=== PATIENT | male | born 1965 | race Caucasian/White ===

== ENCOUNTER 2019-08-17 08:04 | Day surgery (SDC) | payer OTHER, SELFPAY ==
--- NOTE | 2019-08-16 19:27 | HP.PCM_ITS ---
History and Physical Date of Admission: 08/17/19 Leena Blackman 1965 ? ? CHIEF COMPLAINT: Scrotal pain ? HPI: The patient is a 54 year old male presents with left sided scrotal pain and was found to have a left inguinal hernia by urology. The patient states that he has noted symptoms for about 4-6 months. Denies burning with urination. Denies blood in urine. Notes twinges of sharp pain in the area. Denies constipation, denies straining with bowel movements or with urination. Notes slight swelling in the area. Denies previous hernias. ? ? PAST MEDICAL HISTORY ? Hypertension ? ? Non-seasonal allergic rhinitis 03/21/2019 ? PAST SURGICAL HISTORY ? APPENDECTOMY HX? done at 13 yrs old ? COLONOSCOP W/ OR W/O [facility] SPEC ? 04/12/2019 ? TONSILLECTOMY HX? done at 11 yrs old ? ? Current Outpatient Medications: candesartan (ATACAND) 32 mg tablet Take 1 tablet by mouth once daily. propranolol (INDERAL) 40 mg tablet Take one 60-90 minutes prior to public speaking ? ? ALLERGIES: Seasonal Allergies ? PERSONAL HISTORY: Social History Socioeconomic History Marital status: Tobacco Use Smoking status: Never Smoker ? FAMILY HISTORY Mother breast cancer 30 years ago Father?cancer lung and brain ? ? REVIEW OF SYSTEMS: General - denies fevers, denies anorexia, denies weight loss Cardiovascular - denies chest pain, denies history of [place] Pulmonary - denies shortness of breath, denies coughing up blood Gastrointestinal - denies abdominal pain, denies hematemesis, denies blood in stools Neurological - denies seizures, denies chronic numbness/weakness of extremities, denies chronic headaches Genitourinary - notes left testicular pain, denies burning with urination, denies blood in urine Hematological - denies spontaneous/prolonged bleeding Skin - denies nonhealing skin wounds Musculoskeletal - denies chronic joint/back pain Endocrine - denies diabetes, no thyroid problems Psychological ? denies hallucinations ? PHYSICAL EXAMINATION: General: The patient is 54 year old male, well nourished, well hydrated in no acute distress. The patient is oriented to time, place, and person. VITALS: Blood pressure 156/88, pulse 67, temperature 36.6 ?C (97.8 ?F), height 185.4 cm (6' 1), weight 90.8 kg (200 lb 3.2 oz), SpO2 94 %. Body mass index is 26.41 kg/m?. Head ? Normocephalic. EOM intact with sclera clear and no icterus noted. Mouth with mucus membranes moist. Neck - supple with no jugular venous distention noted. Trachea is midline. No masses noted. Lungs ? clear to auscultation. Normal breath sounds. No rales/rhonchi/wheezing noted. No labored breathing noted, such as retractions. No cough heard. Heart ? normal S1 and S2 auscultated. No rubs/clicks/murmurs noted. Regular rate. Abdomen ? soft and benign. Normal bowel soundss. No abdominal bruits noted. No distention noted. Extremities ? no calf tenderness noted. No pitting edema noted. Genitalia ? normal male phallus, testes in normal anatomical position and no masses noted, left inguinal hernia - reducible, no right inguinal hernias noted even with valsalva-like maneuvers Skin ? normal skin integrity. Neurological ? gait normal, no focal deficits noted Psych ? calm and appropriate ? ? IMPRESSION: left inguinal hernia ? PLAN: I have discussed the above with the patient. I have explained what a hernia is, in layman's terms. I have offered left inguinal hernia repair with mesh. I have explained the procedure to the patient. I have counseled the patient as to the risks of the procedure, including but not limited to: infection, bleeding, injury to any blood vessels/nerves, scar tissue, injury to the spermatic cord and/or testicle, injury to bowel/bladder, chronic groin pain, recurrence of hernia, wound infections, complications of anesthesia, etc. ? the patient understands. The patient wishes to proceed. ? I have answered all questions to the patient?s satisfaction and the patient has no further questions. . Diagnoses: (K40.90) Left inguinal hernia (primary encounter diagnosis) (N50.82) Scrotal pain Return to Clinic: The patient is instructed to follow-up with me after the procedure..
[2019-08-17] VITALS (10 sets, daily range): BP systolic 135–171; BP diastolic 74–106; PULSE 60–68; RESP 16–17; TEMP 36.1–36.6; O2SAT 94–100; BMI 26.4
--- NOTE | 2019-08-17 08:16 | EKG12_ITS ---
Test Reason : PREOP Blood Pressure : / mmHG Vent. Rate : 060 BPM Atrial Rate : 060 BPM P-R Int : 214 ms QRS Dur : 156 ms QT Int : 430 ms P-R-T Axes : 056 -06 -02 degrees QTc Int : 430 ms Sinus rhythm with 1st degree A-V block Right bundle branch block Abnormal ECG No previous ECGs available Confirmed by JED ORTEZ ([id number]), acquisition editor ALEX CURRY ([id number] on 08/21/2019 1:33:03 PM Referred By: Emy Cannon Confirmed By:JED ORTEZ
[2019-08-17] MEDS: Lactated Ringers 1,000 ML 75 ML IV (08:57)
[2019-08-17] MEDS: Cefazolin 2 GM in 0.9% Normal Saline 100 ML IV (09:44)
--- NOTE | 2019-08-17 09:45 | LIP_PTH ---
PATIENT: DACIA TRISTAN LOC: [facility] [place] U#:[id number] AGE/SX: 54/M ROOM: RE08/17/[address]: Dr. Emy Cannon MD : 1965 BED: DIS: 08/17/2019 SPEC #: [id number] RECD: 08/17/19 12:58 STATUS: JOSE DANIEL REhSante #: [id number] STEFANIE: 08/17/19 09:[address]: Emy Cannon DEPT: SURGICAL PATHOLOGY RECD BY: Joey Barnard ENTERED: 08/17/19 13:35 SP TYPE: LIPOMA OTHR DR: MD Anali Hunt MD Tissues: Inguinal region, NOS Procedures: Surgery Specimen Level III HEADER OPERATION: Inguinal hernia with mesh PRE-OP DIAGNOSIS: Right inguinal hernia TISSUE SUBMITTED: Right inguinal lipoma MICROSCOPIC DIAGNOSIS Right inguinal lipoma, biopsy: Mature adipose tissue consistent with lipoma. SJ:anam 08/20/19 MICROSCOPIC DESCRIPTION Slides are reviewed. GROSS DESCRIPTION Received in fixative is one container labeled with the patient's name and designated right inguinal lipoma. The specimen consists of an ovoid irregular piece of yellow adipose measuring 10 x 5 x 2 cm. Sections reveal yellow adipose cut surfaces without area of hemorrhage, necrosis or cystic degeneration. Crown Assembly Machine Operator sections are submitted in three cassettes. / SJ:anam 08/17/19 TC:1 CPT: 33079
--- NOTE | 2019-08-17 09:47 | PCM.DC.HER ---
Discharge Diet: No Restrictions Discharge Activity: Return to Normal Activity, May not drive while taking narcotic pain medications. Lifting Restrictions: no lifting greater than 50 pounds for one month Call your doctor if your incision/area has: Continuous Slow Oozing, Foul Smelling Discharge Call your doctor if you observe: Fever of 101 or Higher Additional Instructions: recommended pain medication regimen: take 650 mg acetaminophen (Tylenol), then in three hours take 600 mg ibuprofen (Motrin), then in three hours take 650 mg acetaminophen, then in three hours take 600 mg ibuprofen, etc. for 2-3 days take prescription narcotic pain medication for breakthrough pain and at night apply ice packs to area liberally for comfort swelling and bruising in the area is normal - if scrotal swelling become uncomfortable - lie in a Lazy-Boy type chair with legs elevated - place towel across top of upper thighs and rest scrotum on towel to allow drainage of extra fluid back into torso Allergies/Adverse Reactions: Allergies No Known Allergies Allergy (Verified 08/17/19 08:27) Medications to take at Discharge Candesartan Cilexetil [Atacand] 32 mg PO DAILY 08/15/19 Propranolol HCl [Inderal] 40 mg PO DAILY 08/15/19 Hydrocodone Bitart/Apap 5-325 [[place] 5MG-325MG] 1 tab PO Q8H PRN PRN 5 Days #15 tab 08/17/19 The following prescriptions were given: Hydrocodone Bitart/Apap 5-325 [[place] 5MG-325MG] 1 tab PO Q8H PRN PRN 5 Days #15 tab PRN Reason: Pain Prescription Printed Primary Care Physician: Anali Reyes MD [Primary Care Provider] - Test Results: Test results from this visit will be discussed in further detail at your follow-up appointment, if applicable. Please Follow Up With: Emy Cannon MD - call When: to be seen in 1-2 weeks, please call for date and time, thank you
--- NOTE | 2019-08-17 10:41 | OP.PCM_ITS ---
Report of Operation Date of Procedure: 08/17/19 Pre-Operative Diagnosis: right inguinal hernia Post-Operative Diagnosis: right inguinal hernia - direct with cord lipoma Surgery/Procedure Performed:: right inguinal hernia repair with mesh Description of Surgical Findings:: right inguinal hernia - direct, no indirect sac found after spermatic cord exploration, large cord lipoma - excised library associate: Russel Phillips Type of Anesthesia:: General Anesthesiologist: Otto Valladares Specimen's removed: right cord lipoma Estimated Blood Loss (mL): minimal Fluids Replaced: 800 ml RL Description of Procedure: After informed consent was obtained, patient was brought to the Operating Room. Appropriate time out protocol was followed. He was then placed in the supine position. The patient was then placed under anesthesia. The lower torso and the right groin area and genitalia were then prepped with a surgical skin preparation and appropriate sterile surgical drapes were placed. The anatomical landmarks were identified and after anesthetizing the skin and subcutaneous tiss ues with 1% lidocaine with epinephrine, a transverse skin incision was made above the level of the internal inguinal ring. The subcutaneous tissues were then sharply dissected down to the external oblique fascia and any hemorrhage was adequately controlled with electrocoagulation. The external oblique was then divided obliquely along the fibers and a muscle-splitting incision was then made to divide the internal oblique musculature and fascia. The transversalis fascia was then identified and was then incised parallel to the inferior hypogastric vessels. The preperitoneal space was then entered. Blunt dissection was then done to identify out Kevin's ligament, the pubic tubercle and a large area surrounding these landmarks for placement of the mesh. The iliac vessels were identified. The patient had a direct fascial defect in Hasselbach's triangle. The spermatic cord was bluntly dissected - no indirect hernia sac was found.. A large size right sided Bard 3D mesh was then placed in the preperitoneal space such that it would be overlapping medially beyond the pubic tubercle and overlapping inferior to Kevin's ligament. A 5mm secure tack was then applied to fixate the medial aspect of the mesh to the pubic tubercle. The remainder of the mesh was then flattened out against the anterior abdominal wall in its entirety. The patient was then placed in the reversed [place] position to ensure that the mesh was laid out properly according to hand almond blancher's guidelines. The mesh covered the entire wound opening also. The internal oblique fascia was then closed using interrupted 0 prolene suture. One of the sutures was used to lock the mesh into position. Hemostasis was carefully controlled with electrocoagulation. The external oblique fascia was then reapproximated using a running 0 Vicryl suture. This was carefully done to avoid any entrapment of blood vessels/nerves. Mike's fascia was closed using Vicryl suture in an interrupted simple fashion. The skin incision was closed with 4-0 Monocryl in a running subcuticular fashion. Cavilon and Steri-Strips were used to reinforce the skin closure and appropriate sterile dressing was applied. The patient tolerated the procedure well and there was no evidence of any complications. The patient was brought to the Recovery Room in stable condition. Grafts/Implants Used: Bard 3D Max mesh Lot#[id number], exp 2024-05-11 - Complications none noted - Admit VTE Documentation VTE Present on Admission: Yes VTE Mechan Device Prophylaxis: SCD's
[2019-08-17] MEDS: Ketorolac 30 MG/ML Syringe IV (11:15)
[2019-08-17] MEDS: HYDROcodone Bitartrate/Apap 5/325 Tablet PO (11:51)
== END 2019-08-17 12:51 | disposition home or self-care (01) ==
LOC: SDC 08:07 → AC 08:09
PROVIDERS: Family Provider Internal Medicine; PCP Internal Medicine; Referring Provider Surgery; Visit Provider Surgery
PROC: (CPT 49505; principal; 2019-08-17 09:30)
DX: K40.90 Unilateral inguinal hernia, without obstruction or gangrene, not specified as recurrent (principal); D17.6 Benign lipomatous neoplasm of spermatic cord; I10 Essential (primary) hypertension; J30.89 Other allergic rhinitis; Z79.899 Other long term (current) drug therapy
CPT/HCPCS: 49505; 55520; 88304; 93005; J7050; J7120; C1781; J2405

== ENCOUNTER → 2021-09-23 16:41 | Outpatient (CLI) | payer OTHER, SELFPAY | PROVIDERS: PCP Internal Medicine; Visit Provider Family Medicine | DX: Z23 Encounter for immunization (principal) | CPT/HCPCS: 0004A; 91300 ==